=== PATIENT | female | born 1945 | race Caucasian/White ===

== ENCOUNTER → 2016-09-12 | Outpatient (CLI) | payer OTHER ==
--- NOTE | 2016-09-12 16:09 | MAMMOGRAPHY REPORT ---
BILATERAL DIGITAL SCREENING MAMMOGRAM WITH CAD: 09/12/2016 CLINICAL HISTORY: Routine screening. Patient has no complaints. TECHNIQUE: Current study was also evaluated with a Computer Aided Detection (CAD) system. COMPARISON: Comparison is made to exam dated: 08/30/2015 mammogram - [facility]. Prior outside mammograms dated 08/23/2014, 08/18/2013, 08/16/2012, 08/13/2010. BREAST COMPOSITION: The tissue of both breasts is heterogeneously dense, which may obscure small ma sses. FINDINGS: No suspicious masses, calcifications, or areas of architectural distortion are noted in e ither breast. There has been no significant interval change compared to prior exams. Bilateral asym metries and bilateral benign-appearing calcifications are stable compared to prior exams. A linear scar marker denotes a scar on the left upper outer breast. IMPRESSION: ACR BI-RADS CATEGORY 2: BENIGN There is no mammographic evidence of malignancy. A 1 year screening mammogram is recommended. The p atient will receive written notification of the results. Approximately 10% of breast cancers are not detected with mammography. A negative mammographic repor t should not delay biopsy if a clinically suggestive mass is present. Medina Gonsalves M.D. /:09/12/2016 16:03:26 Wireless Watcher: Chel Horton, [facility] letter sent: Normal 1/2 BI-RADS Code: ACR BI-RADS Category 2: Benign
== END | disposition home or self-care (01) ==
LOC: C.MAMM 12:31
PROVIDERS: ATTEND Family Medicine
DX: Z12.31 Encounter for screening mammogram for malignant neoplasm of breast (principal)

== ENCOUNTER → 2017-02-20 | Outpatient (CLI) | payer OTHER ==
--- NOTE | 2017-02-20 12:07 | DIAGNOSTIC IMAGING REPORT ---
L FINGER(S) MIN 2 VIEWS ROUTINE HISTORY: 71 years-old Female L02.512 Cellulitis and abscess of finger of left handLeftMiddleR acute left third digit pain COMPARISON: None available TECHNIQUE: 3 views of the left third finger FINDINGS: The bones are mildly demineralized without acute fracture or dislocation. Moderate joint space narrowing with subchondral sclerosis and marginal osteophytosis with subcortical cystic changes are seen involving the DIP joint third digit compatible with moderate to severe osteoarthritis. No erosive changes are identified. Mild soft tissue swelling of the third digit is noted. No opaque foreign body. IMPRESSION: 1. Mild soft tissue swelling without acute fracture or dislocation. 2. 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 The above report was generated using voice recognition software. It may contain grammatical, syntax or spelling errors. Electronically signed by: Ermias Mccurdy M.D. 02/20/2017 12:06 PM Dictated Date/Time: 02/20/2017 12:04 PM
== END | disposition home or self-care (01) ==
LOC: C.RAD 11:20
PROVIDERS: ATTEND Neuromusculoskeletal Medicine & OMM
DX: L03.012 Cellulitis of left finger (principal); L02.512 Cutaneous abscess of left hand

== ENCOUNTER → 2017-08-24 | Outpatient (CLI) | payer OTHER | END | disposition home or self-care (01) | LOC: C.PATHSPEC 17:11 | PROVIDERS: ATTEND Plastic Surgery | DX: L82.0 Inflamed seborrheic keratosis (principal) ==

== ENCOUNTER → 2017-09-14 | Outpatient (CLI) | payer OTHER ==
--- NOTE | 2017-09-15 12:46 | MAMMOGRAPHY REPORT ---
BILATERAL DIGITAL SCREENING MAMMOGRAM TOMOSYNTHESIS WITH CAD: 09/14/2017 CLINICAL HISTORY: Routine screening. Patient has no complaints. TECHNIQUE: Breast tomosynthesis in addition to standard 2D mammography was performed. Current study was also evaluated with a Computer Aided Detection (CAD) system. COMPARISON: Comparison is made to exams dated: 09/12/2016 mammogram and 08/30/2015 mammogram - [facility]. BREAST COMPOSITION: The tissue of both breasts is heterogeneously dense, which may obscure small mas ses. FINDINGS: No new suspicious mass, architectural distortion or cluster of microcalcifications is seen . There is stable asymmetry in the medial, posterior right breast and a few benign coarse calcificat ions bilaterally. IMPRESSION: ACR BI-RADS CATEGORY 1: NEGATIVE There is no mammographic evidence of malignancy. A 1 year screening mammogram is recommended. The pa tient will receive written notification of the results. Approximately 10% of breast cancers are not detected with mammography. A negative mammographic report should not delay biopsy if a clinically suggestive mass is present. Valentina Doss M.D. ay/:09/14/2017 16:44:48 Marble Mechanic Helper: Chel DURAN(Anant)(M), [facility] letter sent: Normal 1/2 BI-RADS Code: ACR BI-RADS Category 1: Negative
== END | disposition home or self-care (01) ==
LOC: C.MAMM 12:33
PROVIDERS: ATTEND Family Medicine
DX: Z12.31 Encounter for screening mammogram for malignant neoplasm of breast (principal); Z78.0 Asymptomatic menopausal state; M85.88 Other specified disorders of bone density and structure, other site; M85.851 Other specified disorders of bone density and structure, right thigh; M85.852 Other specified disorders of bone density and structure, left thigh

== ENCOUNTER 2021-04-05 11:01 | Inpatient (IN) ==
[2021-04-05 12:28] LABS: Basophils # (auto) 0.04 K/uL (0-0.2); Basophils % (auto) 0.8 %; Eosinophils # (auto) 0.32 K/uL (0-0.5); Eosinophils % (auto) 6.1 %; Hematocrit (blood only) 40.5 % (37-47); Hemoglobin 13.4 g/dL (12.0-16.0); Lymphocytes # (auto) 1.62 K/uL (1.2-3.4); Lymphocytes % (auto) 30.7 %; Mean Corpuscular Hgb Conc 33.1 g/dL (32-36); Mean Corpuscular Volume 93.8 fL (80-100); Mean Platelet Volume 9.3 fL (7.4-10.4); Monocytes # (auto) 0.51 K/uL (0.11-0.59); Monocytes % (auto) 9.7 %; Neutrophils # (auto) 2.79 K/uL (1.4-6.5); Neutrophils % (auto) 52.7 %; Platelet Count 316 K/uL (130-400); RDW Coefficient of Variation 13.5 % (11.5-14.5); RDW Standard Deviation 46.4 fL (36.4-46.3); Red Blood Count 4.32 M/uL (4.2-5.4); White Blood Count 5.28 K/uL (4.8-10.8)
[2021-04-05 13:01] LABS: Albumin Globulin Ratio 0.6 (0.9-2); Albumin Level 3.1 gm/dl (3.4-5.0); BUN Creatinine Ratio 12.7 (10-20); Bilirubin,Total 0.4 mg/dl (0.2-1); Calcium 9.5 mg/dl (8.5-10.1); Est GFR (African American) 54.7 ml/min; Est GFR (Non-African American) 47.2 ml/min; Globulin 5.2 gm/dl (2.5-4.0); Potassium 4.3 mmol/L (3.5-5.1); Total Protein 8.3 gm/dl (6.4-8.2)
[2021-04-05] MEDS ORDERED: PIPERACILLIN/TAZOBACTAM 4.5 GM/120 ML BAG IV ONE (15:08)
[2021-04-05] MEDS ORDERED: PIPERACILL/TAZOBAC CONSULT ACTIVE PRN ×2 (15:08→16:33)
[2021-04-05 15:44] LABS: Appearance Urine Clear (Clear); Bilirubin Urine Negative (Negative); Blood Urine Negative (Negative); Color Urine Dark Yellow; Glucose Urine UA Negative (Negative); Ketones Urine 2+ (Negative); Leukocyte Esterase Urine Negative (Negative); Nitrite Urine Negative (Negative); Protein Urine Negative (Negative); Specific Gravity Urine 1.039 (1.000-1.030); Urobilinogen Urine Negative (Negative)
--- NOTE | 2021-04-05 16:01 | History & Physical Report ---
Date of Service April 05, 2021 Assessment & Plan (1) Sigmoid diverticulitis: Plan: Given sigmoid diverticular abscess will place on intravenous Zosyn reassess clinically in 24 hours patient is fairly stable at this point if remains away may consider retransitioning to oral medications in short order (2) DVT prophylaxis: Plan: Will use Lovenox DVT for DVT prevention History of Present Illness Primary Care Provider: Tala Duarte MD Patient was told to come back to the ER today after imaging from her ER visit on 04/04/2021 shows a peridiverticular abscess a 2.6 cm without perforation. Patient is stable labs and vital signs patient be kept n.p.o. except for chips sips and p.o. meds and be put on Zosyn therapy. Allergies Allergy/AdvReac Type Severity Reaction Status Date / Time No Known Allergies Allergy Verified 04/05/21 15:18 Home Medications Medication Instructions Recorded Confirmed Type calcium carb-Ca gluc 500 mg 1 tab PO PM 05/09/19 04/05/21 History calcium-magnesium ox-Mg gluc 250 mg tablet (Calcium Magnesium) multivitamin 1 tab PO QAM 05/09/19 04/05/21 History omega-3 fatty acids 1,000 mg 1,000 mg PO DAILY 05/23/19 04/05/21 History capsule (Fish Oil Concentrate) ascorbic acid (vitamin C) 1,000 mg 1 gm PO DAILY 11/30/19 04/05/21 History tablet pyridoxine (vitamin B6) 100 mg 100 mg PO DAILY 11/30/19 04/05/21 History tablet valacyclovir 500 mg tablet 500 mg PO BID PRN tab 12/05/20 04/05/21 History (Valtrex) amoxicillin 875 mg-potassium 1 tab PO BID 04/05/21 04/05/21 History clavulanate 125 mg tablet Past Med/Surg History Medical History (Updated 04/05/21 @ 17:16 by Rudy Steele MD) Acid reflux Osteoarthritis Surgical History History of breast biopsy 30 YRS AGO History of colonoscopy Hx of cornea transplant RIGHT S/P cataract surgery S/P laparoscopy S/P wisdom tooth extraction Family History Father COPD (chronic obstructive pulmonary disease) Denies family history of Ovarian cancer Prostate cancer Myocardial infarction Breast cancer Colorectal cancer Social History Smoking Status: Never smoker Second Hand Exposure: No; Hx Alcohol Use: Yes Alcohol type: wine Alcohol Intake Frequency: 4 or More x per/Week Hx Substance Use: No Preferred Language: Bengali Communication Ability: Effective Visual Impairment: No Limitations Hearing Ability: Normal Solution Coordinator Required: No Beliefs That Will Affect Care: None marital status: / Current Living Situation: Alone current occupational status: retired Feels Safe at Home: Yes Safety Concerns: Feels Safe At This Time Childhood Exposure to Second-Hand Smoke: No Dental Care, Regularly: Yes Physical Activity Frequency: Daily Seatbelt Use: always Sunscreen Use: Yes Assistive Devices: None Review of Systems Review of Systems: Mild distress and fatigue no headache, no visual changes no speech or swallowing issues no chest pain, pressure or palpitations no shortness of breath, cough or wheezes no abdominal pain, nausea or vomiting, diarrhea or constipation no dysuria, hematuria or frequency no focal joint pain or swelling no back pain, CVA tenderness or radicular pain no bruising, bleeding or rashes no focal signs of weakness or numbness or altered sensation no complaints of anxiety or depression.. Physical Exam Physical Exam: The patient appeared well nourished and normally developed. Vital signs as documented. Head exam is normocephalic atraumatic Neck is without JVD, thyromegaly, or carotid bruits. Lungs are clear to auscultation, no focal loss of breath sounds Cardiac exam, Rhythm is regular.. No murmurs, rubs or gallops. Abdominal exam reveals normal bowel sounds, soft non tender, no masses Extremities are nonedematous and both pedal pulses are present Neurologic exam is alert and oriented, no focal loss of strength or sensation Skin is without bruises or rashes Psychologically is without concerns for anxiety or depression.. Results & Data Results & Data ([facility]) Vital Signs (Past 12 Hours) Vital Signs Temp Pulse Pulse Resp BP BP Pulse Ox 04/05/21 15:28 78 18 161/98 H 98 04/05/21 11:19 98.2 F 78 20 133/[address] scan abdomen pelvis 04/04/2021 advanced colonic diverticulosis with acute sigmoid diverticulitis. 2.6 cm diverticular abscess along the superior margin of the sigmoid colon. Trace free fluid. No intraperitoneal air. Code Status & VTE Plan VTE Prophylaxis Plan VTE Prophylaxis will be ordered: Yes PG Care Time/CCT Total # of Minutes Spent Total Time Spent with Patient: Total time spent is greater than 50% in coordination of care (as documented) at patient's floor/unit and/or counseling patient: Coding Level of Care Code 92660 Initial Inpt Care Lvl 2 Diagnoses Sigmoid diverticulitis K57.32 DVT prophylaxis Z29.9
[2021-04-05] MEDS ORDERED: ONDANSETRON INJ 2 MG/ML 2 ML VIAL IV PRN (16:33)
[2021-04-05] MEDS ORDERED: ALUMINUM/MAGNESIUM SUSP 30 ML UDC PO PRN (16:33)
[2021-04-05] MEDS ORDERED: MoRPHine SULFATE 2 MG/ML CARP IV PRN (16:33)
[2021-04-05] MEDS ORDERED: MoRPHine SULFATE 4 MG/ML 1 ML CARP\\VIAL IV PRN (16:33)
--- NOTE | 2021-04-05 17:17 | Emergency Department Note ---
Impression & Plan Diverticulitis of intestine with abscess ED Provider Note INFORMANT: Patient ED PROVIDER(S): Rudy Steele MD CHIEF COMPLAINT: Abdominal pain, abnormal CT PLAN: Disposition: Admitted Condition: Good Outpatient prescription management: none Referral: None MEDICAL DECISION MAKING: Patient presented back to the emergency department. Repeat blood work was unremarkable. Patient was started on IV Zosyn due to the diverticulitis and abscess seen on CT imaging. I discussed treatment in the hospital. Patient was in agreement. [facility], Dr. Licona Patient was evaluated in the ER admitted for further management. Triage Nursing notes reviewed and agree them. Vital Signs: reviewed and remarkable for no significant abnormalities Differential diagnosis: Diverticulitis, abscess, appendicitis, UTI, obstruction, mesenteric ischemia, aortic pathology, inflammatory bowel disease, renal colic, PUD, pancreatitis, biliary pathology, hernia, volvulus, constipation, as well as other pathologies. Diagnostics interpreted by me: ECG: none Cardiac Monitoring: none Imaging studies: No additional imaging ordered. HPI: The patient is a 75 year old female who presents to the Emergency Room due to abdominal pain and diverticulitis that was found to have an abscess on CT imaging. Patient was here last night was treated with Mefoxin and started on Augmentin. The patient had an over read of her CT scan done this morning and they noted a 2.6 cm abscess consistent with that from diverticulitis. No perforation was noted. The patient was called back. She notes continued abdominal discomfort. Overall she notes no worsening of her condition. Current pain is a 3 out of 10. Patient has been using Tylenol. Pt denies LOC, headache, fevers, chills, diaphoresis, visual changes, neck pain, chest pain, breathing difficulties, nausea, vomiting, back pain, melena, hematochezia, urinary symptoms, numbness, weakness, lymphadenopathy, rash, or other complaints. ROS: See above HPI for pertinent positives & negatives. A total of 10 systems reviewed and were otherwise negative. PAST MEDICAL HISTORY:See Below , diverticulitis PAST SURGICAL HISTORY:See Below, FAMILY HISTORY:See Below SOCIAL HISTORY:See Below, non-smoker HOME MEDICATIONS:See Below ALLERGIES:See Below VITALS:See Below PHYSICAL EXAMINATION: GENERAL: Awake, alert, mildly anxious-appearing, in no distress HENT: Normocephalic, atraumatic. Oropharynx unremarkable. EYES: Normal conjunctiva. Sclera non-icteric. NECK: Inspection normal. Non-tender. Supple. No nuchal rigidity. FROM. No masses. RESPIRATORY: Clear to auscultation. No wheezes. No rales. Normal respiratory effort. CARDIAC: Normal rate. Normal rhythm. No murmurs. No rubs. Extremities warm and well perfused. Pulses equal. No JVD. GI: Soft, non-distended. Left lower quadrant tenderness to palpation. No rebound or guarding. No masses. RECTAL: Deferred. MUSCULOSKELETAL: Atraumatic. Chest examination reveals no tenderness. The back is symmetrical on inspection without obvious abnormality. There is no CVA tenderness to palpation. No joint edema. LOWER EXTREMITIES: Calves are equal size bilaterally and non-tender. No edema. No discoloration. NEURO: Normal sensorium. No sensory or motor deficits noted. SKIN: No rash or jaundice noted. Rudy Steele MD Past Med/Surg History Medical History (Updated 04/05/21 @ 17:16 by Rudy Steele MD) Acid reflux Osteoarthritis Surgical History History of breast biopsy 30 YRS AGO History of colonoscopy Hx of cornea transplant RIGHT S/P cataract surgery S/P laparoscopy S/P wisdom tooth extraction Family History Father COPD (chronic obstructive pulmonary disease) Denies family history of Ovarian cancer Prostate cancer Myocardial infarction Breast cancer Colorectal cancer Social History Smoking Status: Never smoker Second Hand Exposure: No; Hx Alcohol Use: Yes Alcohol type: wine Alcohol Intake Frequency: 4 or More x per/Week Hx Substance Use: No Preferred Language: Citizen Of [place] Communication Ability: Effective Visual Impairment: No Limitations Hearing Ability: Normal Cycle Manager Required: No Beliefs That Will Affect Care: None marital status: / Current Living Situation: Alone current occupational status: retired Feels Safe at Home: Yes Safety Concerns: Feels Safe At This Time Childhood Exposure to Second-Hand Smoke: No Dental Care, Regularly: Yes Physical Activity Frequency: Daily Seatbelt Use: always Sunscreen Use: Yes Assistive Devices: Glasses Allergies Allergies Allergy/AdvReac Type Severity Reaction Status Date / Time No Known Allergies Allergy Verified 04/05/21 15:18 Home Meds Home Medications Medication Instructions Recorded Confirmed calcium carb-Ca gluc 500 mg 1 tab PO PM 05/09/19 04/05/21 calcium-magnesium ox-Mg gluc 250 mg tablet (Calcium Magnesium) multivitamin 1 tab PO QAM 05/09/19 04/05/21 omega-3 fatty acids 1,000 mg 1,000 mg PO DAILY 05/23/19 04/05/21 capsule (Fish Oil Concentrate) ascorbic acid (vitamin C) 1,000 mg 1 gm PO DAILY 11/30/19 04/05/21 tablet pyridoxine (vitamin B6) 100 mg 100 mg PO DAILY 11/30/19 04/05/21 tablet valacyclovir 500 mg tablet 500 mg PO BID PRN tab 12/05/20 04/05/21 (Valtrex) amoxicillin 875 mg-potassium 1 tab PO BID 04/05/21 04/05/21 clavulanate 125 mg tablet Results & Data (ED) Vital Signs Vital Signs - 24 hr 04/05/21 11:19 04/05/21 15:28 Temperature 36.8 C Temperature Source Temporal Artery Scan Pulse Rate 78 Pulse Rate [Finger] 78 Pulse Rhythm Regular Pulse Strength Normal Respiratory Rate 20 18 Respiratory Effort / Characteristics Non-Labored Spontaneous Respiratory Depth Normal Respiratory Pattern Regular Blood Pressure 133/85 Blood Pressure [Left Arm] 161/98 H Blood Pressure Mean 101 Blood Pressure Mean [Left Arm] 119 Blood Pressure Position Sitting Pulse Oximetry 100 98 Oxygen Delivery Method Room Air Room Air Sepsis Recent Fever Within 48 Hours No Sepsis New/Unexplained Change in Mental Status No Sepsis Action Taken by Nursing No Action Required Laboratory Data Result diagrams: 04/05/21 12:20 04/05/21 12:20 Lab Results 04/05/21 04/05/21 04/05/21 Range/Units 12:20 12:20 12:20 WBC 5.28 (4.8-10.8) K/uL RBC 4.32 (4.2-5.4) M/uL Hgb 13.4 (12.0-16.0) g/dL Hct 40.5 (37-47) % MCV 93.8 (80-100) fL MCH 31.0 (25-34) pg MCHC 33.1 (32-36) g/dL RDW Std Deviation 46.4 H (36.4-46.3) fL RDW Coeff of Jodie 13.5 (11.5-14.5) % Plt Count 316 (130-400) K/uL MPV 9.3 (7.4-10.4) fL Immature Gran % (Auto) 0.0 % Neut % (Auto) 52.7 % Lymph % (Auto) 30.7 % [place] % (Auto) 9.7 % Eos % (Auto) 6.1 % Baso % (Auto) 0.8 % Neut # (Auto) 2.79 (1.4-6.5) K/uL Lymph # (Auto) 1.62 (1.2-3.4) K/uL [place] # (Auto) 0.51 (0.11-0.59) K/uL Eos # (Auto) 0.32 (0-0.5) K/uL Baso # (Auto) 0.04 (0-0.2) K/uL Immature Gran # (Auto) 0.00 (0.00-0.02) K/uL Sodium 140 (136-145) mmol/L Potassium 4.3 D (3.5-5.1) mmol/L Chloride 107 (98-107) mmol/L Carbon Dioxide 24 (21-32) mmol/L Anion Gap 8.0 (3-11) BUN 14 (7-18) mg/dl Creatinine 1.13 (0.6-1.2) mg/dl Est Cr Clr Drug Dosing 42.0 ml/min Est GFR ( Amer) 54.7 ml/min Est GFR (Non-Af Amer) 47.2 ml/min BUN/Creatinine Ratio 12.7 (10-20) Glucose 90 (70-99) mg/dl Calcium 9.5 (8.5-10.1) mg/dl Total Bilirubin 0.4 (0.2-1) mg/dl AST 16 (15-37) U/L ALT 24 (12-78) U/L Alkaline Phosphatase 115 (45-117) U/L Total Protein 8.3 H (6.4-8.2) gm/dl Albumin 3.1 L (3.4-5.0) gm/dl Globulin 5.2 H (2.5-4.0) gm/dl Albumin/Globulin Ratio 0.6 L (0.9-2) Lipase 228 (73-393) U/L Urine Color Urine Appearance (Clear) Urine pH (4.5-7.5) Ur Specific Cord (1.000-1.030) Urine Protein (Negative) Urine Glucose (UA) (Negative) Urine Ketones (Negative) Urine Blood (Negative) Urine Nitrite (Negative) Urine Bilirubin (Negative) Urine Urobilinogen (Negative) Ur Leukocyte Esterase (Negative) SARS-CoV-2, RNA, NAAT NEGATIVE (NEGATIVE) 04/05/21 Range/Units 15:35 WBC (4.8-10.8) K/uL RBC (4.2-5.4) M/uL Hgb (12.0-16.0) g/dL Hct (37-47) % MCV (80-100) fL MCH (25-34) pg MCHC (32-36) g/dL RDW Std Deviation (36.4-46.3) fL RDW Coeff of Jodie (11.5-14.5) % Plt Count (130-400) K/uL MPV (7.4-10.4) fL Immature Gran % (Auto) % Neut % (Auto) % Lymph % (Auto) % [place] % (Auto) % Eos % (Auto) % Baso % (Auto) % Neut # (Auto) (1.4-6.5) K/uL Lymph # (Auto) (1.2-3.4) K/uL [place] # (Auto) (0.11-0.59) K/uL Eos # (Auto) (0-0.5) K/uL Baso # (Auto) (0-0.2) K/uL Immature Gran # (Auto) (0.00-0.02) K/uL Sodium (136-145) mmol/L Potassium (3.5-5.1) mmol/L Chloride (98-107) mmol/L Carbon Dioxide (21-32) mmol/L Anion Gap (3-11) BUN (7-18) mg/dl Creatinine (0.6-1.2) mg/dl Est Cr Clr Drug Dosing ml/min Est GFR ( Amer) ml/min Est GFR (Non-Af Amer) ml/min BUN/Creatinine Ratio (10-20) Glucose (70-99) mg/dl Calcium (8.5-10.1) mg/dl Total Bilirubin (0.2-1) mg/dl AST (15-37) U/L ALT (12-78) U/L Alkaline Phosphatase (45-117) U/L Total Protein (6.4-8.2) gm/dl Albumin (3.4-5.0) gm/dl Globulin (2.5-4.0) gm/dl Albumin/Globulin Ratio (0.9-2) Lipase (73-393) U/L Urine Color Dark Yellow Urine Appearance Clear (Clear) Urine pH 5.0 (4.5-7.5) Ur Specific Cord 1.039 H (1.000-1.030) Urine Protein Negative (Negative) Urine Glucose (UA) Negative (Negative) Urine Ketones 2+ H (Negative) Urine Blood Negative (Negative) Urine Nitrite Negative (Negative) Urine Bilirubin Negative (Negative) Urine Urobilinogen Negative (Negative) Ur Leukocyte Esterase Negative (Negative) SARS-CoV-2, RNA, NAAT (NEGATIVE) Administered Medications Enoxaparin Sodium (Enoxaparin Inj 40 Mg/0.4 Ml Syr) 40 mg SQ DAILY [facility] Stop: 05/05/21 17:59 Last Admin: 04/05/21 17:52 Dose: Not Given Documented by: [id number] Lactated Ringer's (Lr) 1,000 mls @ 100 mls/hr IV .Q10H JENS Stop: 05/05/21 17:29 Last Admin: 04/05/21 17:52 Dose: 100 mls/hr Documented by: [id number] Piperacillin Sod/Tazobactam (Sod 3.375 gm/ Dextrose) 115 mls @ 28.75 mls/hr IV Q8H JENS; Protocol Stop: 04/15/21 19:59 Last Admin: 04/05/21 21:37 Dose: 28.8 mls/hr Documented by: [id number] Discontinued Medications Piperacillin Sod/Tazobactam Sod (Zosyn) 4.5 gm in 120 mls @ 240 mls/hr IV NOW ONE Stop: 04/05/21 15:37 Last Infusion: 04/05/21 16:07 Dose: 0 mls/hr Documented by: [id number] Admin: 04/05/21 15:29 Dose: 240 mls/hr Documented by: [id number] Discharge Plan Visit Data Chief Complaint: Referred by Doctor Stated Complaint: HOSPITAL CALLED NEED IV ANTIBIOTIC ED Provider: Rudy Steele Discharge Problem: Diverticulitis of intestine with abscess Patient Disposition: Admitted As Inpatient Discharge Instructions Interventions: ED Discharge Assessment Last Done: 04/05/21 16:11
[2021-04-05] MEDS: LACTATED RINGER'S 1,000 ML IV SCH (17:52)
[2021-04-05] MEDS: ENOXAPARIN INJ 40 MG/0.4 ML SYR SQ SCH (17:52)
[2021-04-05] MEDS ORDERED: NON-FORMULARY MEDICATION (Ca Carb-Ca Gluc-Mg Ox-Mg Gluco [Calcium Magnesium] 500 mg calciu PO SCH (21:00)
[2021-04-05] MEDS: PIPERACILLIN/TAZOBACTAM 3.375 GM in DEXTROSE 5% 100 ML IV SCH (21:37)
[2021-04-06] MEDS: LACTATED RINGER'S 1,000 ML IV SCH ×2 (04:09→14:10)
[2021-04-06] MEDS: PIPERACILLIN/TAZOBACTAM 3.375 GM in DEXTROSE 5% 100 ML IV SCH ×3 (04:10→20:50)
[2021-04-06 06:35] LABS: Hematocrit (blood only) 35.9 % (37-47); Hemoglobin 11.9 g/dL (12.0-16.0); Mean Corpuscular Hemoglobin 30.5 pg (25-34); Mean Corpuscular Hgb Conc 33.1 g/dL (32-36); Mean Corpuscular Volume 92.1 fL (80-100); Mean Platelet Volume 8.8 fL (7.4-10.4); Platelet Count 261 K/uL (130-400); RDW Coefficient of Variation 13.4 % (11.5-14.5); RDW Standard Deviation 45.3 fL (36.4-46.3)
[2021-04-06 07:17] LABS: Calcium 9.1 mg/dl (8.5-10.1); Creatinine Clr Calc Pharmacy 45.4 ml/min; Est GFR (African American) 60.4 ml/min; Est GFR (Non-African American) 52.1 ml/min; Magnesium 2.3 mg/dl (1.8-2.4); Potassium 4.1 mmol/L (3.5-5.1)
[2021-04-06] MEDS: PYRIDOXINE HCL 50 MG TAB PO SCH (08:33)
[2021-04-06] MEDS: ENOXAPARIN INJ 40 MG/0.4 ML SYR SQ SCH (08:33)
[2021-04-06] MEDS: OMEGA-3 (PURIFIED FISH OIL) 1 GM CAP PO SCH (08:33)
[2021-04-06] MEDS: ASCORBIC ACID 500 MG TAB PO SCH (08:33)
[2021-04-06] MEDS: MULTIVITAMIN TAB PO SCH (08:42)
--- NOTE | 2021-04-06 13:52 | Surgery Consultation ---
Date of Consultation April 06, 2021 Assessment & Plan (1) Diverticulitis of intestine with abscess: Patient admitted with perisigmoid diverticular abscess She is very stable and we are continue with IV antibiotics and limited oral intake I do believe she could likely begin clear liquids tomorrow if she progresses She has not even had 24 hours of IV antibiotics and normally I would consider 4 to 5 days in this situation We will see how she progresses -with possible discharge Thursday afternoon or Thursday If we are concerned we can reimage the patient She will need oral antibiotics at home for likely a total of 2 weeks History of Present Illness Attending Physician: Chriss Kwong History of Present Illness 75-year-old female who was seen in the evening of04/04 in the emergency room-she had abdominal pain at that time and had a CAT scan-it was read as uncomplicated diverticulitis and she was sent home-she was called in the morning before she had a chance to begin her antibiotics-her CAT scan was reread as a small abscess in the perisigmoid area and she was admitted to the hospital for IV antibiotics The IV antibiotics were begun 04/05/2021 at 9 PM Her pain is well controlled at the present time Her vital signs are stable Allergies Allergy/AdvReac Type Severity Reaction Status Date / Time No Known Allergies Allergy Verified 04/05/21 15:18 Home Medications Medication Instructions Recorded Confirmed Type calcium carb-Ca gluc 500 mg 1 tab PO PM 05/09/19 04/05/21 History calcium-magnesium ox-Mg gluc 250 mg tablet (Calcium Magnesium) multivitamin 1 tab PO QAM 05/09/19 04/05/21 History omega-3 fatty acids 1,000 mg 1,000 mg PO DAILY 05/23/19 04/05/21 History capsule (Fish Oil Concentrate) ascorbic acid (vitamin C) 1,000 mg 1 gm PO DAILY 11/30/19 04/05/21 History tablet pyridoxine (vitamin B6) 100 mg 100 mg PO DAILY 11/30/19 04/05/21 History tablet valacyclovir 500 mg tablet 500 mg PO BID PRN tab 12/05/20 04/05/21 History (Valtrex) amoxicillin 875 mg-potassium 1 tab PO BID 04/05/21 04/05/21 History clavulanate 125 mg tablet Patient History Medical History (Updated 04/05/21 @ 17:16 by Rudy Steele MD) Acid reflux Osteoarthritis Surgical History History of breast biopsy 30 YRS AGO History of colonoscopy Hx of cornea transplant RIGHT S/P cataract surgery S/P laparoscopy S/P wisdom tooth extraction Family History Father COPD (chronic obstructive pulmonary disease) Denies family history of Ovarian cancer Prostate cancer Myocardial infarction Breast cancer Colorectal cancer Social History Smoking Status: Never smoker Second Hand Exposure: No; Hx Alcohol Use: Yes Alcohol type: wine Alcohol Intake Frequency: 4 or More x per/Week Hx Substance Use: No Preferred Language: Romansh Communication Ability: Effective Visual Impairment: No Limitations Hearing Ability: Normal Workflow Developer Required: No Beliefs That Will Affect Care: None marital status: / Current Living Situation: Alone current occupational status: retired Feels Safe at Home: Yes Safety Concerns: Feels Safe At This Time Childhood Exposure to Second-Hand Smoke: No Dental Care, Regularly: Yes Physical Activity Frequency: Daily Seatbelt Use: always Sunscreen Use: Yes Assistive Devices: None Review of Systems Review of Systems: All systems reviewed & are unremarkable except as noted in HPI & below Physical Exam Physical Exam: Patient is awake and alert sitting in her chair next to the bed is very animated and responsive She is in no distress Constitutional: well developed; no acute distress Eyes: + anicteric sclerae Respiratory: normal respiratory effort; no respiratory distress and no labored breathing Cardiovascular: Rate/Rhythm: regular rate Gastrointestinal (Abdomen): Inspection/Auscultation: abdomen not distended Musculoskeletal: Head/Neck/Chest: head atraumatic Skin: no rashes, warm and dry Neurologic: awake Psychiatric: Orientation: alert Results & Data ([facility]) Vital Signs (Past 12 Hours) Vital Signs Temp Pulse Resp BP Pulse Ox 04/06/21 07:13 36.7 C 69 14 106/66 97 Diagnostic Findings I did review her CAT scan PG Care Time/CCT Total # of Minutes Spent Total Time Spent with Patient: Total time spent is greater than 50% in coordination of care (as documented) at patient's floor/unit and/or counseling patient: Coding Level of Care Code 97716 Inpt Consult Level 4 Diagnoses Diverticulitis of intestine with abscess K57.80
[2021-04-06] MEDS: ACETAMINOPHEN 325 MG TAB PO PRN (14:44)
--- NOTE | 2021-04-06 17:05 | Hospitalist Progress Note ---
Date of Service April 06, 2021 Assessment & Plan (1) Diverticulitis of intestine with abscess: Plan: - Patient admitted for IV antibiotic therapy -- Empiric Zosyn 4.5g IV q6h for minimum of 48 hours - General surgery has been consulted, appreciate recommendations by Dr. Hoffman - No indication for surgical intervention at this time, if symptoms acutely worsen or pt would develop fever or leukocytosis, will reimage - NPO except meds - Pain control ordered -- IV Morphine according to pain scale - IVF - continue LR @ 100 ml/hr - Zofran 4mg IV q6h prn n/v (2) DVT prophylaxis: Plan: - Lovenox daily Plan: Follow up labs in AM Admission and Anticipated Discharge Date Admission Date: April 05, 2021 Supervising Physician Co-Signing Physician Notes Attending Attestation - Chart reviewed, care plan d/w BEATRIZ Miller. I agree w/ the alas components of her documentation. Complicated sigmoid diverticulitis with abscess. IV zosyn + IV fluids. Gen surg input appreciated. Diet advancement per surgery. Chriss Kwong MD Subjective Rosita Wolfe was seen on rounds this morning. She was seen in the ED on 04/04 for c/o abd pain and was told she had an uncomplicated diverticulitis. She was subsequently sent home with course of Augmentin. However, later contacted informing that she had an abscess and requested that she return to the hospital for IV antibiotic therapy. Pt notes that this is her first bout of diverticulit is. She currently is resting comfortably in bed and offers no new complaints/concerns. She denies n/v. She has some mild lower abdominal discomfort. She denies cp, dyspnea, f/c, headache, or gu symptoms. She is currently NPO. Passing flatus. No issues reported by RN. Review of Systems Review of Systems: CONSTITUTIONAL: Denies weight loss/gain, fever and chills, fatigue, malaise, generalized weakness. HEENT: Denies changes in vision and hearing. RESPIRATORY: Denies SOB, cough, wheezing. CV: Denies palpitations, CP, lower extremity edema, orthopnea, PND. GI: (+) mild lower abdominal pain. Denies nausea, vomiting and diarrhea. : Denies dysuria and urinary frequency, urgency, hesitancy. MUSCULOSKELETAL: Denies myalgia and joint pain. SKIN: Denies rash and pruritus. NEUROLOGICAL: Denies headache, syncope, focal weakness, numbness, tingling. PSYCHIATRIC: Denies recent changes in mood. Denies anxiety and depression. Physical Exam 2 Physical Exam: GENERAL: 75 yo WF. Well-developed, well-nourished. Pleasant and cooperative. NAD. LUNGS: Clear to auscultation bilaterally. No accessory muscle use. No W/R/R. CARDIOVASCULAR: Regular rate and rhythm. No M/G/R. No JVD. ABDOMEN: Soft, nondistended. Tender in LLQ to deep palpation. BS normoactive x 4. EXTREMITIES: No edema. Non-tender. Peripheral pulses +2/4. PSYCHIATRIC: Cooperative. Appropriate mood and affect. SKIN: Warm, dry, intact. No rashes or lesions. Results & Data Results & Data ([facility]) Vital Signs (Past 12 Hours) Vital Signs Temp Pulse Resp BP Pulse Ox 04/06/21 16:36 139/86 04/06/21 16:17 36.6 C 77 16 161/84 H 99 04/06/21 07:13 36.7 C 69 14 106/66 97 Laboratory Results 04/06/21 06:13 04/06/21 06:[address] ABD/PELVIS W/ CONTRAST: 04/04/21 1. There is advanced colonic diverticulosis with acute sigmoid diverticulitis. 2. No intraperitoneal free air is identified. 3. There is a 2.6 cm diverticular abscess along the superior margin of the sigmoid colon. 4. Trace free fluid in the pelvis is likely reactive. 5. Question left-sided nephrolithiasis. CT read by Dr. Wilmer Lombardi MD on 04/05 PG Care Time/CCT Total # of Minutes Spent Total Time Spent with Patient: Total time spent is greater than 50% in coordination of care (as documented) at patient's floor/unit and/or counseling patient: Coding Level of Care Code 66394 Subseq Hosp Care Lvl 2 Diagnoses Diverticulitis of intestine with abscess K57.80 DVT prophylaxis Z29.9
[2021-04-07] MEDS: LACTATED RINGER'S 1,000 ML IV SCH ×2 (00:19→10:41)
[2021-04-07] MEDS: PIPERACILLIN/TAZOBACTAM 3.375 GM in DEXTROSE 5% 100 ML IV SCH ×3 (04:26→20:04)
--- NOTE | 2021-04-07 05:05 | Surgery Progress Note ---
Date of Service April 07, 2021 Assessment & Plan (1) Diverticulitis of intestine with abscess: Plan: Patient has been admitted by the hospital service. We recommend proceeding as follows: Continue analgesics Continue antiemetics Continue IV fluids until oral intake can be advanced and deemed adequate Continue antibiotics in the form of Zosyn. Patient will likely require a 2- week course of antibiotics. Continue n.p.o. status for the present time. May consider advancing to clear liquids later today if clinical improvement continues Check a.m. labs when available Admission and Anticipated Discharge Date Admission Date: April 05, 2021 Supervising Physician Co-Signing Physician Notes Patient's vital signs are stable She is doing very well on IV antibiotics We will advance her to clear liquids today Possible discharge tomorrow afternoon or Thursday Augmentin would be a good choice 875 mg p.o. twice daily Subjective Patient is resting comfortably in bed. She notes she has continued abdominal pain which is greatest in her lower abdomen but does note a slight improvement since admission. Since admission she has not had any nausea vomiting and she says she is having some liquid bowel movements. She denies any shortness of breath. She denies any fevers, shakes, chills. Physical Exam Gastrointestinal (Abdomen): Abdomen is soft and nondistended. Bowel sounds are present. There is no rebound tenderness or guarding. There is pain noted with palpation in the lower abdomen. Results & Data ([facility]) Vital Signs (Past 12 Hours) Vital Signs Temp Pulse Resp BP Pulse Ox 04/06/21 22:35 36.7 C 82 16 117/69 95 PG Care Time/CCT Total # of Minutes Spent Total Time Spent with Patient: Total time spent is greater than 50% in coordination of care (as documented) at patient's floor/unit and/or counseling patient: Coding Level of Care Code 13371 Subseq Hosp Care Lvl 1 Diagnoses Diverticulitis of intestine with abscess K57.80
[2021-04-07 08:10] LABS: Hematocrit (blood only) 38.1 % (37-47); Hemoglobin 12.5 g/dL (12.0-16.0); Mean Corpuscular Hemoglobin 30.4 pg (25-34); Mean Corpuscular Hgb Conc 32.8 g/dL (32-36); Mean Corpuscular Volume 92.7 fL (80-100); Platelet Count 293 K/uL (130-400); RDW Coefficient of Variation 13.2 % (11.5-14.5); RDW Standard Deviation 45.1 fL (36.4-46.3); Red Blood Count 4.11 M/uL (4.2-5.4)
[2021-04-07 08:44] LABS: Calcium 8.9 mg/dl (8.5-10.1); Creatinine Clr Calc Pharmacy 50.3 ml/min; Est GFR (African American) 68.3 ml/min; Est GFR (Non-African American) 58.9 ml/min
[2021-04-07 08:45] LABS: Magnesium 2.1 mg/dl (1.8-2.4)
[2021-04-07] MEDS: MULTIVITAMIN TAB PO SCH (08:55)
[2021-04-07] MEDS: ASCORBIC ACID 500 MG TAB PO SCH (08:55)
[2021-04-07] MEDS: OMEGA-3 (PURIFIED FISH OIL) 1 GM CAP PO SCH (08:55)
[2021-04-07] MEDS: PYRIDOXINE HCL 50 MG TAB PO SCH (08:55)
[2021-04-07] MEDS: ENOXAPARIN INJ 40 MG/0.4 ML SYR SQ SCH (08:56)
--- NOTE | 2021-04-07 12:53 | Hospitalist Progress Note ---
Date of Service April 07, 2021 Assessment & Plan (1) Diverticulitis of intestine with abscess: Plan: - Patient admitted for IV antibiotic therapy -- Empiric Zosyn 4.5g IV q6h for minimum of 48 hours - General surgery has been consulted, appreciate recommendations by Dr. Hoffman - No indication for surgical intervention at this time, if symptoms acutely worsen or pt would develop fever or leukocytosis, will reimage - Pain control ordered -- IV Morphine according to pain scale - Initially pt kept NPO, this AM diet advanced to clear liquids. Continue this for now. - IVF - continue LR @ 100 ml/r -- can cap now that pt's diet is advanced and she is tolerating - Continue Zofran 4mg IV q6h prn n/v - Can plan to transition to oral Augmentin 875mg/125mg upon discharge. Would treat for total of 14 days. (2) DVT prophylaxis: Plan: - Lovenox daily Plan: Follow up labs in AM Cap fluids, advance diet to clears Home in the next 24-48 hours with transition to oral Augmentin (already called into her pharmacy by ED) Admission and Anticipated Discharge Date Admission Date: April 05, 2021 Supervising Physician Co-Signing Physician Notes Attending Attestation - Chart reviewed, care plan d/w BEATRIZ Miller. I agree w/ the alas components of her documentation. Complicated sigmoid diverticulitis with abscess. IV zosyn + IV fluids. Gen surg input appreciated. Patient stable and progressing. Will need lengthy course of antibiotics post-d/c given her abscess. Thus far I/D of the abscess not needed due to small size of the abscess. Chriss Kwong MD Subjective Mrs. Wolfe was seen on rounds this morning. She remains hospitalized for acute sigmoid diverticulitis with associated 2.6 cm abscess. She has been up a mbulating around in her room. Continues to have c/o mild lower abdominal discomfort but is otherwise doing well. Denies n/v. Has had a few episodes of loose stools yesterday and today. Denies hematochezia or melena. Denies cp, dyspnea, fever, chills. Surgery saw this AM, advanced diet to clears which thus far she is tolerating well w/o increased pain. Review of Systems Review of Systems: CONSTITUTIONAL: Denies weight loss/gain, fever and chills, fatigue, malaise, generalized weakness. HEENT: Denies changes in vision and hearing. RESPIRATORY: Denies SOB, cough, wheezing. CV: Denies palpitations, CP, lower extremity edema, orthopnea, PND. GI: (+) mild lower abdominal pain and diarrhea. Denies nausea, vomiting. : Denies dysuria and urinary frequency, urgency, hesitancy. MUSCULOSKELETAL: Denies myalgia and joint pain. SKIN: Denies rash and pruritus. NEUROLOGICAL: Denies headache, syncope, focal weakness, numbness, tingling. PSYCHIATRIC: Denies recent changes in mood. Denies anxiety and depression. Physical Exam Physical Exam: GENERAL: 75 yo WF. Well-developed, well-nourished. Pleasant and cooperative. NAD. LUNGS: Clear to auscultation bilaterally. No accessory muscle use. No W/R/R. CARDIOVASCULAR: Regular rate and rhythm. No M/G/R. No JVD. ABDOMEN: Soft, nondistended. Tender in LLQ to deep palpation. BS normoactive x 4. EXTREMITIES: No edema. Non-tender. Peripheral pulses +2/4. PSYCHIATRIC: Cooperative. Appropriate mood and affect. SKIN: Warm, dry, intact. No rashes or lesions. Results & Data Results & Data ([facility]) Vital Signs (Past 12 Hours) Vital Signs Temp Pulse Resp BP Pulse Ox 04/07/21 08:26 36.6 C 68 16 95/63 L 98 Laboratory Results 04/07/21 07:41 04/07/21 07:41 PG Care Time/CCT Total # of Minutes Spent Total Time Spent with Patient: Total time spent is greater than 50% in coordination of care (as documented) at patient's floor/unit and/or counseling patient: Coding Level of Care Code 84221 Subseq Hosp Care Lvl 2 Diagnoses Diverticulitis of intestine with abscess K57.80 DVT prophylaxis Z29.9
[2021-04-07] MEDS: ACETAMINOPHEN 325 MG TAB PO PRN (20:13)
[2021-04-08] MEDS: PIPERACILLIN/TAZOBACTAM 3.375 GM in DEXTROSE 5% 100 ML IV SCH ×3 (04:54→20:11)
--- NOTE | 2021-04-08 08:51 | Surgery Progress Note ---
Date of Service April 08, 2021 Assessment & Plan (1) Diverticulitis of intestine with abscess: Plan: Patient afebrile. Labs pending Notes some improvement in pain. Tolerating clears Continue on IV abx If doing okay can consider full liquids later Prefer to keep patient another day Admission and Anticipated Discharge Date Admission Date: April 05, 2021 Supervising Physician Co-Signing Physician Notes some nonspecific abd pressure with diet- clear liquids will cont clears today- possibly adv in am cont IV atbx Subjective Patient says she thinks she feels a little better today. Still some mild bloating and lower abdominal discomfort, but improved. Tolerating liquids, no nausea/vomiting. Not passing much flatus, but having loose watery stools. Physical Exam Physical Exam: awake/alert Gastrointestinal (Abdomen): Inspection/Auscultation: + abdomen distended (mild) Percussion/Palpation: + abdomen tender (some discomfort to palpation of the lower abdomen) and abdomen soft Results & Data ([facility]) Vital Signs (Past 12 Hours) Vital Signs Temp Pulse Resp BP Pulse Ox 04/08/21 08:19 36.4 C L 69 16 146/81 H 94 04/07/21 23:24 36.6 C 66 16 123/74 97 PG Care Time/CCT Total # of Minutes Spent Total Time Spent with Patient: Total time spent is greater than 50% in coordination of care (as documented) at patient's floor/unit and/or counseling patient: Coding Level of Care Code 55106 Subseq Hosp Care Lvl 1 Diagnoses Diverticulitis of intestine with abscess K57.80
[2021-04-08 09:12] LABS: Hematocrit (blood only) 40.7 % (37-47); Hemoglobin 13.4 g/dL (12.0-16.0); Mean Corpuscular Hemoglobin 30.4 pg (25-34); Mean Corpuscular Hgb Conc 32.9 g/dL (32-36); Mean Corpuscular Volume 92.3 fL (80-100); Platelet Count 327 K/uL (130-400); RDW Coefficient of Variation 13.4 % (11.5-14.5); RDW Standard Deviation 45.1 fL (36.4-46.3); Red Blood Count 4.41 M/uL (4.2-5.4); White Blood Count 4.42 K/uL (4.8-10.8)
[2021-04-08 09:39] LABS: BUN Creatinine Ratio 5.7 (10-20); Calcium 9.1 mg/dl (8.5-10.1); Est GFR (African American) 59.7 ml/min; Est GFR (Non-African American) 51.5 ml/min; Magnesium 2.1 mg/dl (1.8-2.4); Potassium 3.6 mmol/L (3.5-5.1)
[2021-04-08] MEDS: ASCORBIC ACID 500 MG TAB PO SCH (09:59)
[2021-04-08] MEDS: OMEGA-3 (PURIFIED FISH OIL) 1 GM CAP PO SCH (10:00)
[2021-04-08] MEDS: MULTIVITAMIN TAB PO SCH (10:00)
[2021-04-08] MEDS: ENOXAPARIN INJ 40 MG/0.4 ML SYR SQ SCH (10:00)
[2021-04-08] MEDS: PYRIDOXINE HCL 50 MG TAB PO SCH (10:00)
[2021-04-08] MEDS: ADVANCED PROBIOTIC 1250 MG CAPSULE PO SCH (11:54)
--- NOTE | 2021-04-08 17:07 | Hospitalist Progress Note ---
Date of Service April 08, 2021 Assessment & Plan (1) Diverticulitis of intestine with abscess: Plan: Admitted 04/[address] of the abdomen and pelvis showed a peridiverticular abscess measuring 2.6 cm without evidence of perforation White blood cell count was normal, she was afebrile and hemodynamically stable Admitted for IV antibiotics (currently on Zosyn) Was initially n.p.o. but has since been started on clear [facility] General surgery on boardappreciate recommendations. No surgery indicated at this time. If symptoms acutely worsen, would reimage but for now continue conservative management With continued improvement, plan for hopeful discharge tomorrow (will need 14 days of antibiotics total) (2) DVT prophylaxis: Plan: - Lovenox daily Plan: Home in the next 24-48 hours with transition to oral Augmentin (already called into her pharmacy by ED) Admission and Anticipated Discharge Date Admission Date: April 05, 2021 Subjective Patient seen on daily rounds today. Denies fevers, chills, chest pain, shortness of breath, nausea or vomiting. Tolerating clear liquids without ill effects. Still with minor abdominal discomfort but overall significantly improved Review of Systems Review of Systems: All systems reviewed and are unremarkable except as noted in HPI and below Denies fevers, chills, headache, nasal congestion, sore throat, cough, chest pain, shortness of breath, palpitations, orthopnea, PND, nausea, vomiting, diarrhea, constipation, dysuria, hematuria, frequency, back pain, joint pain or swelling, easy bruising or bleeding, skin lesions or rashes. Physical Exam Physical Exam: General: Resting comfortably in her bedside chair. NAD. HEENT: Head is AT/NC buccal mucosa is moist and pink Neck: No JVD. Negative hepatojugular reflex Cardiac: RRR without M/G/R Lungs: CTA without W/R/R Abdomen: Normoactive X4. Soft. Very mild tenderness in the lower quadrants bilaterally (right greater than left) Extremities: No peripheral clubbing cyanosis or edema Neuro: A&O X4 cranial nerves II through XII are grossly intact no focal neuro de ficits Skin: No obvious skin lesions or rashes Psych: Appropriate affect pleasant and cooperative Results & Data Results & Data ([facility]) Vital Signs (Past 12 Hours) Vital Signs Temp Pulse Resp BP Pulse Ox 04/08/21 15:29 36.6 C 68 18 104/70 96 04/08/21 08:19 36.4 C L 69 16 146/81 H 94 Laboratory Results 04/08/21 08:51 04/08/21 08:51 PG Care Time/CCT Total # of Minutes Spent Total Time Spent with Patient: Total time spent is greater than 50% in coordination of care (as documented) at patient's floor/unit and/or counseling patient: Coding Level of Care Code 27563 Subseq Hosp Care Lvl 1 Diagnoses Diverticulitis of intestine with abscess K57.80 DVT prophylaxis Z29.9
[2021-04-08] MEDS: ACETAMINOPHEN 325 MG TAB PO PRN (19:02)
[2021-04-09] MEDS: PIPERACILLIN/TAZOBACTAM 3.375 GM in DEXTROSE 5% 100 ML IV SCH ×2 (04:50→13:17)
[2021-04-09 07:31] LABS: Basophils # (auto) 0.04 K/uL (0-0.2); Basophils % (auto) 0.9 %; Eosinophils # (auto) 0.32 K/uL (0-0.5); Eosinophils % (auto) 7.5 %; Hematocrit (blood only) 37.2 % (37-47); Hemoglobin 12.2 g/dL (12.0-16.0); Lymphocytes # (auto) 1.71 K/uL (1.2-3.4); Mean Corpuscular Hemoglobin 30.4 pg (25-34); Mean Corpuscular Hgb Conc 32.8 g/dL (32-36); Mean Corpuscular Volume 92.8 fL (80-100); Mean Platelet Volume 9.1 fL (7.4-10.4); Monocytes # (auto) 0.39 K/uL (0.11-0.59); Monocytes % (auto) 9.1 %; Neutrophils # (auto) 1.81 K/uL (1.4-6.5); Neutrophils % (auto) 42.5 %; Platelet Count 286 K/uL (130-400); RDW Coefficient of Variation 13.6 % (11.5-14.5); Red Blood Count 4.01 M/uL (4.2-5.4); White Blood Count 4.27 K/uL (4.8-10.8)
[2021-04-09 08:04] LABS: BUN Creatinine Ratio 4.4 (10-20); Calcium 8.4 mg/dl (8.5-10.1); Creatinine Clr Calc Pharmacy 51.4 ml/min; Est GFR (African American) 70.1 ml/min; Est GFR (Non-African American) 60.5 ml/min; Potassium 3.5 mmol/L (3.5-5.1)
[2021-04-09] MEDS: ENOXAPARIN INJ 40 MG/0.4 ML SYR SQ SCH (08:51)
[2021-04-09] MEDS: OMEGA-3 (PURIFIED FISH OIL) 1 GM CAP PO SCH (08:52)
[2021-04-09] MEDS: ADVANCED PROBIOTIC 1250 MG CAPSULE PO SCH (08:52)
[2021-04-09] MEDS: MULTIVITAMIN TAB PO SCH (08:52)
[2021-04-09] MEDS: PYRIDOXINE HCL 50 MG TAB PO SCH (08:52)
[2021-04-09] MEDS: ASCORBIC ACID 500 MG TAB PO SCH (08:52)
--- NOTE | 2021-04-09 13:47 | Surgery Progress Note ---
Date of Service April 09, 2021 Assessment & Plan (1) Diverticulitis of intestine with abscess: Plan: We will obtain a CT of the abdomen to assess her progress I do not expect much resolution but hopefully no worsening If it is worse she may need to be made n.p.o. placed on PPN continue IV antibiotics and then consider IV antibiotics at home Admission and Anticipated Discharge Date Admission Date: April 05, 2021 Subjective May have a little bit of belching and some fullness Overall her vital signs are stable and she looks good No significant abdominal pain Review of Systems Review of Systems: All systems reviewed & are unremarkable except as noted in HPI & below Physical Exam Physical Exam: awake/alert Gastrointestinal (Abdomen): Inspection/Auscultation: + abdomen distended (mild) Percussion/Palpation: + abdomen tender (some discomfort to palpation of the lower abdomen) and abdomen soft Results & Data ([facility]) Vital Signs (Past 12 Hours) Vital Signs Temp Pulse Resp BP Pulse Ox 04/09/21 07:09 36.9 C 70 18 104/65 96 PG Care Time/CCT Total # of Minutes Spent Total Time Spent with Patient: Total time spent is greater than 50% in coordination of care (as documented) at patient's floor/unit and/or counseling patient: Coding Level of Care Code 47152 Inpt Consult Level 3 Diagnoses Diverticulitis of intestine with abscess K57.80
[2021-04-09] MEDS ORDERED: OPTIRAY 320 100ml IV ONE (15:26)
--- NOTE | 2021-04-09 16:51 | CT Scan Report ---
CT abd pelvis oral and IV con CLINICAL HISTORY: Follow-up diverticulitis and suspected diverticular abscess. COMPARISON STUDY: 04/04/2021 CT DOSE: 747.95 mGycm TECHNIQUE: Standard CT of the Abdomen and Pelvis was performed with IV contrast. A dose lowering ruslan hnique was utilized adhering to the principles of ALARA. Contrast Volume: Optiray 320, 95 ml. The patient received oral contrast. FINDINGS: Lung base: The lung bases are clear. Abdominal cavity: There is no evidence for abdominal mass, adenopathy or ascites. Liver: There is homogeneous attenuation of the liver parenchyma. There is no evidence for enhancing m ass lesion. Spleen: There is homogeneous attenuation of the splenic parenchyma. There is no enhancing mass lesion . Pancreas: There is homogeneous attenuation of the pancreatic parenchyma. There is no evidence for mas s lesion or peripancreatic fluid collection. Gall Bladder: The gallbladder is well distended with no evidence for intraluminal calculi, wall thick ening or pericholecystic edema. Adrenal glands: The adrenal glands are normal in size and attenuation. There is no evidence for enhan cing mass lesion. Kidneys: There is homogeneous attenuation of the renal parenchyma bilaterally. There is no evidence f or renal calculus or hydronephrosis. There is no evidence for enhancing mass. Bowel: Oral contrast is seen within the stomach, small bowel and throughout the colon to the level of the rectum. Compared to the previous examination, there is again extensive sigmoid diverticulosis wi th mucosal thickening and perisigmoidal inflammatory changes are presenting acute diverticulitis. Flu id is seen tracking along the sigmoid colon bilaterally. However, there is no evidence for enhancing wall or enhancing abscess. There is no extravasation of contrast outside the sigmoid colon with no de finite evidence for a diverticular abscess. There is no evidence for mass lesion. There is no evidenc e for free air. Bladder: The bladder is within normal limits with no evidence for focal mass, calculus or diverticulu m. : There is no evidence for pelvic mass or adenopathy. There is no evidence for pelvic ascites. The uterus is enlarged and tilted to the right. Vasculature: There is no evidence for aneurysmal dilatation of the abdominal aorta. Osseous structures: There is no acute osseous pathology. Extensive degenerative changes are again see n within the lumbar spine. IMPRESSION: 1. Compared to the previous examination, there is again acute diverticulitis involving essentially th e entire sigmoid colon with perisigmoid sigmoidal fluid tracking along the sigmoid colon. However, no enhancing walled abscess or extravasation of oral contrast outside the sigmoid colon is identified. 2. The suspected abscess described on the previous examination represents the fluid tracking along th e sigmoid colon related to the inflammatory response. There is no free pelvic fluid or free air. 3. Additional nonacute findings are delineated above. ACT 112: Negative or not required by law. Electronically signed by: Go Tapia M.D. 04/09/2021 4:50 PM
--- NOTE | 2021-04-09 17:18 | Hospitalist Progress Note ---
Date of Service April 09, 2021 Assessment & Plan (1) Diverticulitis of intestine with abscess: Plan: Admitted 04/[address] of the abdomen and pelvis showed a peridiverticular abscess measuring 2.6 cm without evidence of perforation White blood cell count was normal, she was afebrile and hemodynamically stable Admitted for IV antibiotics (currently on Zosyn)--day #5 Was initially n.p.o. but has since been started on clear liquids by general surgery General surgery on boardappreciate recommendations. No surgery indicated at this time. If symptoms acutely worsen, would reimage but for now continue conservative management It seems as if patient is showing continued favorable response but she is reporting a heaviness in her lower abdomen. She is afebrile without leukocytosis and hemodynamically stable. Not convinced this is worsening of symptoms but I have reached out to general surgery who agreed with repeating her CT scan Follow-up CT scan shows no drainable abscess. There is sigmoid colon Diverticulitis with perisigmoid fluid tracking along with sigmoid colon but no obvious abscess. At this point, will transition IV antibiotic therapy to oral Augmentin and continue to follow overnight. If continued improvement, will discharge tomorrow. Reassurance that CT scan is improving will be provided (2) DVT prophylaxis: Plan: - Lovenox daily Plan: Home in the next 24 Admission and Anticipated Discharge Date Admission Date: April 05, 2021 Subjective Patient seen on daily rounds today. Overall she reports not having any significant abdominal discomfort but is reporting a "heaviness" that she is noting today. She denies any nausea or vomiting. Her white blood cell count has been normal she. She has been afebrile and hemodynamically stable. She is tolerating oral intake. She has had 4 to 5 days of IV antibiotics at this point. She is very hesitant for discharge in fear that her pain/discomfort will get worse. Review of Systems Review of Systems: All systems reviewed and are unremarkable except as noted in HPI and below Denies fevers, chills, headache, nasal congestion, sore throat, cough, chest pain, shortness of breath, palpitations, orthopnea, PND, abdominal pain, nausea, vomiting, diarrhea, constipation, dysuria, hematuria, frequency, back pain, joint pain or swelling, easy bruising or bleeding, skin lesions or rashes. Physical Exam Physical Exam: General: Resting comfortably in her hospital bed. NAD. HEENT: Head is AT/NC buccal mucosa is moist and pink Neck: No JVD. Negative hepatojugular reflex Cardiac: RRR without M/G/R Lungs: CTA without W/R/R Abdomen: Normoactive X4. With mild tenderness in the bilateral lower quadrants but overall seems improved compared to yesterday. Extremities: No peripheral clubbing cyanosis or edema Neuro: A&O X4 cranial nerves II through XII are grossly intact no focal neuro deficits Skin: No obvious skin lesions or rashes Psych: Appropriate affect pleasant and cooperative Results & Data Results & Data ([facility]) Vital Signs (Past 12 Hours) Vital Signs Temp Pulse Resp BP Pulse Ox 04/09/21 15:41 36.3 C L 71 18 139/76 99 04/09/21 07:09 36.9 C 70 18 104/65 96 Laboratory Results 04/09/21 06:31 04/09/21 06:[address] scan of the abdomen and pelvis: IMPRESSION: 1. Compared to the previous examination, there is again acute diverticulitis involving essentially the entire sigmoid colon with perisigmoid sigmoidal fluid tracking along the sigmoid colon. However, no enhancing walled abscess or extravasation of oral contrast outside the sigmoid colon is identified. 2. The suspected abscess described on the previous examination represents the fluid tracking along the sigmoid colon related to the inflammatory response. There is no free pelvic fluid or free air. 3. Additional nonacute findings are delineated above. PG Care Time/CCT Total # of Minutes Spent Total Time Spent with Patient: Total time spent is greater than 50% in coordination of care (as documented) at patient's floor/unit and/or counseling patient: Coding Level of Care Code 62154 Subseq Hosp Care Lvl 2 Diagnoses Diverticulitis of intestine with abscess K57.80 DVT prophylaxis Z29.9
[2021-04-09] MEDS: ACETAMINOPHEN 325 MG TAB PO PRN (21:26)
[2021-04-10] MEDS ORDERED: AMOXICILLIN/CLAVULANATE 875 MG TAB PO SCH (08:00)
--- NOTE | 2021-04-10 08:51 | Surgery Progress Note ---
Date of Service April 10, 2021 Assessment & Plan (1) Diverticulitis of intestine with abscess: Plan: Patient her with diverticulitis VSS, Afebrile. Labs pending Repeat CT scan obtained yesterday showed stable findings. No abscess Advance diet as tolerates. Should continue low fiber at home until bowels normalize Complete course of po abx at home Can f/u with Dr. Hoffman in the clinic in a couple of weeks Admission and Anticipated Discharge Date Admission Date: April 05, 2021 Subjective Patient denies any bloating today. She is tolerating clear liquids, no nausea/vomiting. Passing loose stools. Still has some "heaviness" she describes in the abdomen, but is getting better. Physical Exam Physical Exam: awake/alert Gastrointestinal (Abdomen): Inspection/Auscultation: abdomen not distended Percussion/Palpation: + abdomen tender (some discomfort to palpation in LLQ) and abdomen soft Results & Data ([facility]) Vital Signs (Past 12 Hours) Vital Signs Temp Pulse Resp BP Pulse Ox 04/10/21 07:43 36.8 C 62 18 116/69 97 04/09/21 23:25 36.4 C L 67 14 115/66 98 PG Care Time/CCT Total # of Minutes Spent Total Time Spent with Patient: Total time spent is greater than 50% in coordination of care (as documented) at patient's floor/unit and/or counseling patient: Coding Level of Care Code 58071 Subseq Hosp Care Lvl 1 Diagnoses Diverticulitis of intestine with abscess K57.80
[2021-04-10] MEDS: ENOXAPARIN INJ 40 MG/0.4 ML SYR SQ SCH (08:55)
[2021-04-10] MEDS: PYRIDOXINE HCL 50 MG TAB PO SCH (08:55)
[2021-04-10] MEDS: ADVANCED PROBIOTIC 1250 MG CAPSULE PO SCH (08:56)
[2021-04-10] MEDS: MULTIVITAMIN TAB PO SCH (08:56)
[2021-04-10] MEDS: OMEGA-3 (PURIFIED FISH OIL) 1 GM CAP PO SCH (08:56)
[2021-04-10] MEDS: ASCORBIC ACID 500 MG TAB PO SCH (08:56)
[2021-04-10 09:24] LABS: Basophils # (auto) 0.03 K/uL (0-0.2); Basophils % (auto) 0.7 %; Eosinophils # (auto) 0.32 K/uL (0-0.5); Eosinophils % (auto) 7.1 %; Hematocrit (blood only) 40.7 % (37-47); Hemoglobin 13.4 g/dL (12.0-16.0); Immature Granulocytes # (auto) 0.01 K/uL (0.00-0.02); Immature Granulocytes % (auto) 0.2 %; Lymphocytes # (auto) 1.66 K/uL (1.2-3.4); Lymphocytes % (auto) 36.9 %; Mean Corpuscular Hemoglobin 30.7 pg (25-34); Mean Corpuscular Hgb Conc 32.9 g/dL (32-36); Mean Corpuscular Volume 93.1 fL (80-100); Mean Platelet Volume 9.3 fL (7.4-10.4); Monocytes # (auto) 0.36 K/uL (0.11-0.59); Neutrophils # (auto) 2.12 K/uL (1.4-6.5); Neutrophils % (auto) 47.1 %; Platelet Count 343 K/uL (130-400); RDW Coefficient of Variation 13.4 % (11.5-14.5); Red Blood Count 4.37 M/uL (4.2-5.4)
[2021-04-10 10:24] LABS: BUN Creatinine Ratio 3.6 (10-20); Calcium 9.1 mg/dl (8.5-10.1); Creatinine Clr Calc Pharmacy 47.2 ml/min; Est GFR (African American) 63.4 ml/min; Est GFR (Non-African American) 54.7 ml/min; Magnesium 2.2 mg/dl (1.8-2.4); Potassium 3.5 mmol/L (3.5-5.1)
--- NOTE | 2021-04-10 15:31 | Discharge Summary ---
Date of Service April 10, 2021 Admission HPI Per Admitting Provider Patient was told to come back to the ER today after imaging from her ER visit on 04/04/2021 shows a peridiverticular abscess a 2.6 cm without perforation. Patient is stable labs and vital signs patient be kept n.p.o. except for chips sips and p.o. meds and be put on Zosyn therapy. Principal Diagnosis 1. Peridiverticular abscess Discharge Exam General: Resting comfortably in her hospital bed. NAD. HEENT: Head is AT/NC buccal mucosa is moist and pink Neck: No JVD. Negative hepatojugular reflex Cardiac: RRR without M/G/R Lungs: CTA without W/R/R Abdomen: Normoactive X4. Abdomen soft. No tenderness in all quadrants Extremities: No peripheral clubbing cyanosis or edema Neuro: A&O X4 cranial nerves II through XII are grossly intact no focal neuro deficits Skin: No obvious skin lesions or rashes Psych: Appropriate affect pleasant and cooperative Discharge Data Allergies Allergy/AdvReac Type Severity Reaction Status Date / Time No Known Allergies Allergy Verified 04/05/21 15:18 Consultations 04/05/21 15:12 ED Decision to Admit Stat 04/06/21 12:28 Consult General Surgery Routine 04/10/21 10:36 Consult [facility] naturopathic physician Routine Ordered Studies CT of the A/P done 04/04/2021 IMPRESSION: 1. There is advanced colonic diverticulosis with acute sigmoid diverticulitis. 2. No intraperitoneal free air is identified. 3. There is a 2.6 cm diverticular abscess along the superior margin of the sigmoid colon. 4. Trace free fluid in the pelvis is likely reactive. 5. Question left-sided nephrolithiasis. 6. Additional findings as above. 04/09/21 12:56 CT abd pelvis oral and IV con Routine IMPRESSION: 1. Compared to the previous examination, there is again acute diverticulitis involving essentially the entire sigmoid colon with perisigmoid sigmoidal fluid tracking along the sigmoid colon. However, no enhancing walled abscess or extravasation of oral contrast outside the sigmoid colon is identified. 2. The suspected abscess described on the previous examination represents the fluid tracking along the sigmoid colon related to the inflammatory response. There is no free pelvic fluid or free air. 3. Additional nonacute findings are delineated above. Hospital Course (1) Diverticulitis of intestine with abscess: - Patient admitted for IV antibiotic therapy -- Empiric Zosyn 4.5g - General surgery has been consulted, appreciate recommendations by Dr. Hoffman - No indication for surgical intervention at this time, if symptoms acutely worsen or pt would develop fever or leukocytosis, will reimage - Pain control ordered -- IV Morphine according to pain scale - Initially pt kept NPO. with favorable response--- clear liquids started and diet advanced - IVF - continue LR @ 100 ml/r upfront but capped once tolerating PO - On 04/09 plan was for possible discharge but patient was having some mild "heaviness" in the lower quadrants. She was uncertain if this was just fear of her pain returning or not. Hemodynamically she was stable, afebrile without leukocytosis. - For completeness sake and thoroughness, a repeat CT scan was done showing no evidence of abscess - patient okay to return home with continued antibiotic therapy (Augmentin) for a total of 14 daysalready called into the pharmacy prior to this hospitalization from previous ED stay. Did call the pharmacy to verify that it was available for patient - patient to FU with general surgery as an OP (2) DVT prophylaxis: - Lovenox daily while in house Follow up labs in AM Cap fluids, advance diet to clears Home in the next 24-48 hours with transition to oral Augmentin (already called into her pharmacy by ED) Total Time Total Time Spent Total Time Spent (In Minutes): 40 Discharge Plan Discharge Items Patient Disposition: Home - Self-Care Reason For Visit: DIVERTICULAR ABSCESS Discharge Diagnosis: 1. Diverticulitis with peridiverticular abscess Activity: Resume your previous activity Non-emergency contact: Primary Care Provider and Surgeon Call non-emergency contact if: you have any medication questions, your symptoms worsen and your temperature is above 101 Follow-up/Referrals: Alec Hoffman MD, FACS [Physician] - 04/24/21 10:15 am (Call to schedule follow up in clinic within 2 weeks) Tala Duarte MD [Primary Care Provider] - Diet: Regular Diet Comment: low residue Addtl Attending Provider Instructions: - you were hospitalized with diverticulitis with peridiverticular abscess - you need to complete full course of antibiotic therapy (I confirmed that the Augmentin is at the pharmacy and 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 Can also eat yogurt with live cultures. - follow up with General surgery in 2 weeks - follow up with PCP: 7-10 days - return to the ED for new or worsening symptoms Pending Studies at Discharge: No Stand-Alone Forms: [facility] [employer], Smoking Cessation Medications and DC Order Prescriptions: New Advanced Probiotic 625 mg (10 billion cell) Capsule 2 cap PO DAILY 8 Days Qty: 16 RF: 0 Continued valacyclovir [Valtrex] 500 mg tablet 500 mg PO BID PRN (Reason: Cold Sores) RF: 0 omega-3 fatty acids [Fish Oil Concentrate] 1,000 mg capsule 1,000 mg PO DAILY RF: 0 ascorbic acid (vitamin C) 1,000 mg tablet 1 gm PO DAILY RF: 0 pyridoxine (vitamin B6) 100 mg tablet 100 mg PO DAILY RF: 0 multivitamin Tablet 1 tab PO QAM RF: 0 Calcium Magnesium 500 mg calcium -250 mg Tablet 1 tab PO PM RF: 0 amoxicillin-pot clavulanate 875-125 mg tablet 1 tab PO BID RF: 0 Discharge Orders: Discharge Order (Routine); Ordered 04/10/21 Ordered By: Shruthi Langford/Other Patient Handouts: Diverticulosis Diverticulitis, Anatomy of the Digestive System, Discharge Instructions for ..., When to Use Antibiotics, ED Diet, [place] (Adult) Admission Data Admit Date/Time: 04/05/21 15:44 Attending Provider: Dean Phan Admit Provider: Jamey Licona Primary Care Provider: Tala Duarte Other Providers: Alec Hoffman ; Dean Phan Other Interventions: Discharge Summary Assessment (RN) Last Done: 04/10/21 12:40 Supervising Physician Co-Signing Physician Notes I supervised Shruthi Foster PA-C on the care of this patient. I interviewed and examined the patient independently of her. The plan is as written in her note except for any following changes/exceptions: None Doing well today. No pain. Tolerating food well. Continue PO abx on discharge. Coding Level of Care Code D/C DAY MANAGEMENT >30 MINS Diagnoses Diverticulitis of intestine with abscess K57.80 DVT prophylaxis Z29.9
== END 2021-04-10 13:30 | disposition home or self-care (01) | DRG 392 ==
LOC: ED 11:01 → 3N 15:44 → SUATTDRO 15:44 → 3N 16:11